=== PATIENT | female | born 1980 | race Two or more races ===

== ENCOUNTER 2017-01-10 05:59 | Emergency (ER) | payer MEDICAID ==
[~2017-01-10] VITALS: Ht 165.1 cm; Wt 92.1 kg
[~2017-01-10 05:59] MED LIST: TYLENOL WITH CODEINE
[2017-01-10 06:36] LABS: Basophils # (auto) 0 uL; Basophils % (auto) 0.4 % (0.0-2.0); Eosinophils # (auto) 0.4 uL; Eosinophils % (auto) 3.3 % (0.0-7.0); Hemoglobin 13.5 g/dL (12.2-16.2); Lymphocytes # (auto) 2.6 uL; Lymphocytes % (auto) 23.5 % (10.0-50.0); Mean Corpuscular Hemoglobin 27.8 pg (28.0-32.0); Mean Corpuscular Hgb Conc. 33.7 g/dL (32.0-36.0); Mean Corpuscular Volume 82.6 fL (80.0-100.0); Mean Platelet Volume 8.5 fL (6.9-10.8); Monocytes # (auto) 0.8 uL; Monocytes % (auto) 7.2 % (0.0-12.0); Neutrophils # (auto) 7.2 uL; Neutrophils % (auto) 65.6 % (37.0-80.0); Platelet Count (auto) 324 10^3/uL (140-450); Red Cell Distribution Width 13.3 % (11.8-14.3); White Blood Cell 10.9 10^3/uL (4.4-10.8)
[2017-01-10 07:03] LABS: Albumin 3.8 g/dL (3.4-5.0); BUN/Creatinine Ratio 14.3; Bilirubin, Total 0.5 mg/dL (0.2-1.0); Calcium 8.5 mg/dL (8.5-10.1); Total Protein 7.6 g/dL (6.4-8.2)
[2017-01-10 07:19] VITALS: BP 119/78
== END 2017-01-10 08:08 | disposition home or self-care (01) ==
LOC: ER 06:04
DX: J20.9 Acute bronchitis, unspecified (principal)
CPT/HCPCS: 36415; 71020; 80053; 81025; 85025

== ENCOUNTER 2020-08-31 10:12 | Emergency (ER) | payer MEDICAID ==
[~2020-08-31] VITALS: Ht 165.1 cm; Wt 97.5 kg
[2020-08-31 12:34] VITALS: BP 129/91
== END 2020-08-31 14:10 | disposition home or self-care (01) ==
LOC: ER 10:12
DX: L03.211 Cellulitis of face (principal); L91.8 Other hypertrophic disorders of the skin; Z88.0 Allergy status to penicillin; Z88.1 Allergy status to other antibiotic agents; Z90.49 Acquired absence of other specified parts of digestive tract

== ENCOUNTER → 2021-03-26 | Emergency (ER) | payer SELFPAY ==
[~2021-03-26] VITALS: Ht 162.6 cm; Wt 98.0 kg
[2021-03-26 18:39] VITALS: BP 164/89
== END | disposition left against medical advice (07) ==
LOC: ER 18:23
DX: N64.4 Mastodynia (principal); Z53.21 Procedure and treatment not carried out due to patient leaving prior to being seen by health care provider

== ENCOUNTER 2021-06-14 05:26 | Emergency (ER) | payer MEDICAID, OTHER ==
[~2021-06-14] VITALS: Ht 165.1 cm; Wt 98.0 kg
[2021-06-14 07:25] VITALS: BP 169/95
[2021-06-14] MEDS ORDERED: ERY05OO OP (07:51)
== END 2021-06-14 07:58 | disposition home or self-care (01) ==
LOC: ER 05:26
DX: H10.13 Acute atopic conjunctivitis, bilateral (principal); Z90.49 Acquired absence of other specified parts of digestive tract; Z88.0 Allergy status to penicillin; Z88.1 Allergy status to other antibiotic agents

== ENCOUNTER 2022-10-20 04:33 | Emergency (ER) | payer MEDICAID ==
[~2022-10-20] VITALS: Ht 162.6 cm; Wt 100.0 kg
[~2022-10-20 04:33] MED LIST changes: +ERY05OO OP
[2022-10-20 05:24] LABS: Basophils # (auto) 0 10 ^3/uL (0-0.2); Basophils % (auto) 0.3 % (0.0-2.0); Eosinophils # (auto) 0.1 10 ^3/uL (0-0.8); Eosinophils % (auto) 1.3 % (0.0-7.0); Hematocrit 37.9 % (36.0-46.0); Hemoglobin 13.1 g/dL (12.2-16.2); Lymphocytes # (auto) 1.4 10 ^3/uL (0.4-5.4); Lymphocytes % (auto) 12.9 % (10.0-50.0); Mean Corpuscular Hemoglobin 28.2 pg (28.0-32.0); Mean Corpuscular Hgb Conc. 34.4 g/dL (32.0-36.0); Monocytes # (auto) 0.7 10 ^3/uL (0-1.3); Monocytes % (auto) 6.9 % (0.0-12.0); Neutrophils # (auto) 8.3 10 ^3/uL (1.6-8.6); Neutrophils % (auto) 78.6 % (37.0-80.0); Red Blood Cells 4.62 10^6/uL (4.0-5.20); Red Cell Distribution Width 13.7 % (11.8-14.3); White Blood Cell 10.6 10^3/uL (4.4-10.8)
[2022-10-20 05:43] LABS: Potassium 3.3 mmol/L (3.5-5.1)
[2022-10-20 05:49] LABS: Albumin 3.5 g/dL (3.4-5.0); BUN/Creatinine Ratio 17.3 (10.0-20.0); Calcium 8.4 mg/dL (8.5-10.1)
[2022-10-20 06:01] LABS: Bilirubin, Total 0.3 mg/dL (0.2-1.0); Total Protein 7.1 g/dL (6.4-8.2)
[2022-10-20 06:22] VITALS: BP 170/96
[2022-10-20] MEDS ORDERED: MECLIZINE HCL 25 MG TAB PO ONE (06:45)
[2022-10-20] MEDS ORDERED: ONDANSETRON ODT 4 MG TAB PO ONE (06:45)
[2022-10-20 07:02] LABS: Urine Bacteria FEW /hpf (None Seen); Urine Blood Negative /uL (Negative); Urine Mucus FEW (None Seen); Urine Specific Gravity 1.027 (1.001-1.035); Urine WBC 3 /hpf (0 - 5)
[2022-10-20] MEDS ORDERED: BACDST PO (08:11)
[2022-10-20] MEDS ORDERED: MECL1TAB32 PO (08:11)
== END 2022-10-20 08:19 | disposition home or self-care (01) ==
LOC: ER 04:33
DX: R42 Dizziness and giddiness (principal); N39.0 Urinary tract infection, site not specified; F41.9 Anxiety disorder, unspecified; Z88.1 Allergy status to other antibiotic agents; Z88.0 Allergy status to penicillin; Z90.49 Acquired absence of other specified parts of digestive tract
CPT/HCPCS: 36415; 70450; 80053; 81001; 81025; 85025; 99284; J8597; Q0162